=== PATIENT | female | born 1940 ===

== ENCOUNTER 2016-09-15 16:56 | Emergency (ER) | payer MEDICARE ==
[2016-09-15 16:56] VITALS: BMI 25.4
[2016-09-15 17:10] VITALS: O2SAT 96
[2016-09-15 18:22] LABS: BASO % 0.5 % (0.0-2.0); EOS # 0.1 K/uL (0.0-0.7); EOS % 0.9 % (0.0-4.0); HEMATOCRIT 40.9 % (34.0-47.0); LYMPH # 2.3 K/uL (1.0-4.3); MEAN CELL VOLUME 88.9 fL (81.0-99.0); MEAN CORPUSCULAR HEMOGLOBIN 30.4 pg (27.0-31.0); MEAN CORPUSCULAR HGB CONC 34.2 g/dL (33.0-37.0); MEAN PLATELET VOLUME 7.6 fL (7.2-11.7); MONO # 0.6 K/uL (0.0-0.8); MONO % 8.5 % (0.0-10.0); NRBC % 0.1 % (0.0-2.0); RED CELL DISTRIBUTION WIDTH 13.5 % (11.5-14.5); WHITE BLOOD COUNT 6.9 K/uL (4.8-10.8)
[2016-09-15 18:30] LABS: RBC URINE 1 /hpf (0-3); URINE BILIRUBIN NEGATIVE (NEGATIVE); URINE BLOOD NEGATIVE (NEGATIVE); URINE COLOR Straw (YELLOW); URINE GLUCOSE (UA) NORMAL (Normal); URINE KETONE NEGATIVE (NEGATIVE); URINE LEUKOCYTE ESTERASE 1+ Leu/uL (Negative); URINE PROTEIN NEGATIVE (NEGATIVE); URINE UROBILINOGEN NORMAL mg/dL (0.2-1.0); WBC URINE 6 /hpf (0-5)
[2016-09-15 18:32] LABS: CHLORIDE 96 mmol/L (98-107); POTASSIUM 4.7 mmol/L (3.6-5.2); SODIUM 140 mmol/L (132-148)
[2016-09-15 18:34] LABS: ALB/GLOB RATIO 1.4 (1.0-2.1); ALKALINE PHOSPHATASE 60 U/L (38-126); ALT/SGPT 24 U/L (9-52); AST/SGOT 31 U/L (14-36); BILIRUBIN,TOTAL 0.8 mg/dL (0.2-1.3); BLOOD UREA NITROGEN 13 mg/dL (7-17); CARBON DIOXIDE 30 mmol/L (22-30); GFR AFRICAN-AMERICAN > 60; TOTAL PROTEIN 7.8 g/dL (6.3-8.3)
[2016-09-15 18:35] LABS: CALCIUM 9.6 mg/dl (8.6-10.4); GLUCOSE,RANDOM 100 mg/dL (65-105)
[2016-09-15 18:36] LABS: URINE BACTERIA OCC (<OCC)
--- NOTE | 2016-09-15 19:35 | C.PDOC ---
History Of Present Illness 76 y/o female presents to ED with complaint of cramping RLQ abdominal pain for 3 days. Denies constipation. No fevers, chills, NVD, urinary symptoms, or other complaints. Patient reports she had colonoscopy 1 year ago which was normal. Time Seen by Provider: 09/15/16 19:30 Chief Complaint (Nursing): Abdominal Pain History Per: Patient History/Exam Limitations: no limitations Onset/Duration Of Symptoms: Days (3) Current Symptoms Are (Timing): Still Present Location Of Pain/Discomfort: RLQ Radiation Of Pain To:: None Associated Symptoms: denies: Fever, Nausea, Vomiting, Diarrhea, Constipation Abnormal Vaginal Bleeding: No Past Medical History Reviewed: Historical Data, Nursing Documentation, Vital Signs Vital Signs: Last Vital Signs Temp 98.1 F 09/15/16 17:07 Pulse 71 09/15/16 17:07 Resp 18 09/15/16 17:07 BP 136/87 09/15/16 17:07 Pulse Ox 96 09/15/16 19:59 - Medical History PMH: Gastritis, HTN, Hypercholesterolemia Surgical History: Cholecystectomy Family History: States: Unknown Family Hx - Social History Hx Alcohol Use: No Hx Substance Use: No - Immunization History Hx Tetanus Toxoid Vaccination: No Hx Influenza Vaccination: Yes Hx Pneumococcal Vaccination: No Review Of Systems Except As Marked, All Systems Reviewed And Found Negative. Constitutional: Negative for: Fever, Chills Cardiovascular: Negative for: Chest Pain Respiratory: Negative for: Cough, Shortness of Breath, Wheezing Gastrointestinal: Positive for: Abdominal Pain. Negative for: Nausea, Vomiting , Diarrhea, Constipation Skin: Negative for: Rash Physical Exam - Physical Exam Appears: Non-toxic, No Acute Distress Skin: Normal Color, Warm, Dry Head: Atraumatic, Normacephalic Oral Mucosa: Moist Chest: Symmetrical Cardiovascular: Rhythm Regular Respiratory: Normal Breath Sounds, No Rales, No Rhonchi, No Wheezing Gastrointestinal/Abdominal: Soft, No Tenderness, No Guarding, No Rebound, Other (dull to percussion right side) Back: Normal Inspection Extremity: Normal ROM, Capillary Refill (< 2 sec. ) Neurological/Psych: Oriented x3, Normal Speech, Normal Cognition ED Course And Treatment - Laboratory Results Result Diagrams: 09/15/16 18:15 09/15/16 18:15 Lab Interpretation: Normal (ua neg.) O2 Sat by Pulse Oximetry: 96 (RA) Pulse Ox Interpretation: Normal - Radiology CXR: Interpreted by Me CXR Interpretation: Yes: No Acute Disease - Other Rad abd x 2 X-Ray: Interpreted by Me (+FOS) Reevaluation Time: 19:58 Reassessment Condition: Unchanged Medical Decision Making Medical Decision Making: constipation, no acute issues trial laxative and return to ED PRN Disposition Doctor Will See Patient In The: Office Counseled Patient/Family Regarding: Studies Performed, Diagnosis - Disposition Referrals: Jarrett Tariq MD [Medical Doctor] - Disposition: HOME/ ROUTINE Disposition Time: 19:59 Condition: GOOD Additional Instructions: Briana madi botella de [employer] Magnesio AHORA y re-evalua so molestia del abdomen despues de usar el phil 2-3 veces Sigue un esuavesante de los heces 2 veces al georgi para ayudar en PREVENIR el estrenemiento. Sigue con Dr. Etta quintero que te refierre a un Gastroenterologo para hacer Colonoscopia. Instructions: Constipation (ED), Gas and Bloating (ED) Print Language: SERBIAN - Clinical Impression Clinical Impression: Colicky periumbilical abdominal pain - Scribe Statement The provider has reviewed the documentation as recorded by the Scribsoni Marmolejo Provider Scribe Attestation: All medical record entries made by the Scribe were at my direction and personally dictated by me. I have reviewed the chart and agree that the record accurately reflects my personal performance of the history, physical exam, medical decision making, and the department course for this patient. I have also personally directed, reviewed, and agree with the discharge instructions and disposition.
[2016-09-15 20:16] VITALS: BP 129/84; PULSE 68; RESP 16; TEMP 97.6
--- NOTE | 2016-09-16 09:51 | RAD ---
PROCEDURE: Radiographs of the chest and abdomen (obstructive series) HISTORY: RLQ colic COMPARISON: None available FINDINGS: CHEST: Heart size appears within normal limits. Ectatic aorta. Probable left costophrenic pleural thickening or tiny effusion. No focal consolidation. No definite pneumothorax. Please note that chest x-ray has limited sensitivity for the detection of pulmonary masses. ABDOMEN AND PELVIS: Right upper quadrant surgical clips. Nonobstructive bowel gas pattern. No definite free air. Osseous demineralization. Curvature of the lumbar spine convex the left. Multilevel degenerative changes. IMPRESSION: Probable tiny left pleural thickening/effusion. Right upper quadrant surgical clips. Nonobstructive bowel gas pattern.
== END 2016-09-15 20:16 | disposition home or self-care (01) ==
LOC: C.ER 16:56
DX: R10.33 Periumbilical pain (principal)
CPT/HCPCS: 74022; 80053; 81001; 85025; 96374; 99283; J1885

== ENCOUNTER 2016-11-08 12:57 | Emergency (ER) | payer MEDICARE ==
[2016-11-08 12:58] VITALS: BMI 25.4
[2016-11-08 13:06] VITALS: TEMP 98
--- NOTE | 2016-11-08 14:27 | RAD ---
PROCEDURE: Right Ankle Radiographs. HISTORY: twisted ankle COMPARISON: No prior study available comparison FINDINGS: BONES: Current study reveals no definitive evidence of acute displaced fracture nor dislocation. Osseous structures appear intact JOINTS: Normal. No osteoarthritis. Ankle mortise maintained. Talar dome intact SOFT TISSUES: There may be some minor bilateral soft tissue swelling caudal to the malleoli OTHER FINDINGS: None. IMPRESSION: No evidence of acute displaced fracture nor dislocation Questionable mild soft tissue swelling portal to the malleoli
--- NOTE | 2016-11-08 14:29 | C.PDOC ---
History Of Present Illness 76 year old patient presents to the ED complaining of right ankle pain to the lateral malleolus after inverting her foot while walking. Patient also complains of associated swelling. Patient denies fever, chills, numbness, weakness, or deformities. Time Seen by Provider: 11/08/16 13:21 Chief Complaint (Nursing): Lower Extremity Problem/Injury History Per: Patient History/Exam Limitations: no limitations Onset/Duration Of Symptoms: Days (today) Current Symptoms Are (Timing): Still Present Severity: Mild Pain Scale Rating Of: 3 Recent travel outside of the [place]: No - Ankle/Foot Description Of Injury: Fell Past Medical History Reviewed: Historical Data, Nursing Documentation, Vital Signs Vital Signs: Last Vital Signs Temp 98.0 F 11/08/16 13:03 Pulse 75 11/08/16 14:56 Resp 18 11/08/16 14:56 BP 124/78 11/08/16 14:56 Pulse Ox 98 11/08/16 14:56 - Medical History PMH: Gastritis, HTN, Hypercholesterolemia Surgical History: Cholecystectomy Family History: States: Unknown Family Hx - Social History Hx Alcohol Use: No Hx Substance Use: No - Immunization History Hx Tetanus Toxoid Vaccination: Yes Hx Influenza Vaccination: Yes Hx Pneumococcal Vaccination: Yes Review Of Systems Except As Marked, All Systems Reviewed And Found Negative. Constitutional: Negative for: Fever, Chills Musculoskeletal: Positive for: Other (right ankle pain) Neurological: Negative for: Weakness, Numbness Physical Exam - Physical Exam Appears: Non-toxic, No Acute Distress Skin: Warm, Dry Cardiovascular: Rhythm Regular Extremity: Normal ROM, No Pedal Edema, No Calf Tenderness, Capillary Refill (<2 seconds), No Deformity, Other (right ankle: swelling and tenderness to the lateral malleolus; normal pulse; normal ROM; unable to bear weight) Neurological/Psych: Oriented x3, Normal Speech, Normal Cognition, Normal Motor, Normal Sensation ED Course And Treatment O2 Sat by Pulse Oximetry: 97 (room air) Pulse Ox Interpretation: Normal - Other Rad right ankle X-Ray: Interpreted by Me, Viewed By Me Interpretation: no fracture Progress Note: Plan: Ultram, Right ankle x-ray. Patient's right foot was put in a splint. Crutches were given to assist with ambulation. Patient is discharged and instructed to follow up with the podiatry clinic. Disposition Doctor Will See Patient In The: Hospital Counseled Patient/Family Regarding: Diagnosis, Need For Followup, Rx Given - Disposition Referrals: [facility] [Outside] Disposition: HOME/ ROUTINE Disposition Time: 14:48 Additional Instructions: Please make an appointment with the Podiatry Clinic. Prescriptions: traMADol/Acetaminophen [Ultracet 37.5/325 mg] 1 tab PO TID PRN #20 tab PRN Reason: pain Instructions: Ankle Sprain (ED), RICE Therapy (ED) Forms: Gen Discharge Inst Amharic - POA Present On Arrival: None - Clinical Impression Clinical Impression: Joint pain, Sprain of ankle, right - Scribe Statement The provider has reviewed the documentation as recorded by the Scribe Margot Kent All medical record entries made by the Scribe were at my direction and personally dictated by me. I have reviewed the chart and agree that the record accurately reflects my personal performance of the history, physical exam, medical decision making, and the department course for this patient. I have also personally directed, reviewed, and agree with the discharge instructions and disposition.
[2016-11-08 14:57] VITALS: BP 124/78; PULSE 75; RESP 18
[2016-11-08 15:02] VITALS: O2SAT 97
== END 2016-11-08 14:58 | disposition home or self-care (01) ==
LOC: C.ER 12:57
DX: S93.401A Sprain of unspecified ligament of right ankle, initial encounter (principal); X50.3XXA Overexertion from repetitive movements, initial encounter; Y93.01 Activity, walking, marching and hiking; Y92.414 Local residential or business street as the place of occurrence of the external cause
CPT/HCPCS: 29515; 73610; 97116; 97161; 99285; G8978; G8979; G8980

== ENCOUNTER 2016-12-13 12:19 | Emergency (ER) | payer MEDICARE, OTHER ==
[2016-12-13 12:20] VITALS: BMI 25.4
[2016-12-13 12:28] VITALS: TEMP 97.8
[2016-12-13 14:04] LABS: BASO % 0.5 % (0.0-2.0); EOS % 0.5 % (0.0-4.0); LYMPH # 1.9 K/uL (1.0-4.3); LYMPH % 28.7 % (20.0-40.0); MEAN CELL VOLUME 88.2 fL (81.0-99.0); MEAN CORPUSCULAR HEMOGLOBIN 29.5 pg (27.0-31.0); MEAN CORPUSCULAR HGB CONC 33.5 g/dL (33.0-37.0); MEAN PLATELET VOLUME 7.7 fL (7.2-11.7); MONO # 0.5 K/uL (0.0-0.8); MONO % 7.3 % (0.0-10.0); RED CELL DISTRIBUTION WIDTH 13.3 % (11.5-14.5); WHITE BLOOD COUNT 6.6 K/uL (4.8-10.8)
[2016-12-13 14:12] LABS: CHLORIDE 95 mmol/L (98-107)
--- NOTE | 2016-12-13 14:12 | C.PDOC ---
History Of Present Illness 76-year-old female, PMHx includes Hypertension, Migraines, GERD and Insomnia, presents to the emergency department with complaints of four-day duration of left-sided shoulder pain that started four days ago after lifting heavy laundry. Pain radiates to left arm and left chest and is rated 5/10. Patient denies any relieving/exacerbating factors. She notes she has a general headache , due to not being able to sleep. No trauma, palpitations, SOB, abdominal pain, headache, fevers, chills, back pain, or any other associated symptoms. No other complaints at this time. Time Seen by Provider: 12/13/16 13:23 Chief Complaint (Nursing): Chest Pain History Per: Patient History/Exam Limitations: no limitations Onset/Duration Of Symptoms: Days Current Symptoms Are (Timing): Still Present Severity: Moderate Pain Scale Rating Of: 5 Past Medical History Reviewed: Historical Data, Nursing Documentation, Vital Signs Vital Signs: Last Vital Signs Temp 97.8 F 12/13/16 12:27 Pulse 75 12/13/16 12:27 Resp 20 12/13/16 12:27 BP Pulse Ox 98 12/13/16 14:14 - Medical History PMH: Gastritis, Gall Bladder Disease, HTN, Hypercholesterolemia Surgical History: Cholecystectomy Family History: States: No Known Family Hx - Social History Hx Alcohol Use: No Hx Substance Use: No - Immunization History Hx Tetanus Toxoid Vaccination: Yes Hx Influenza Vaccination: Yes Hx Pneumococcal Vaccination: Yes Review Of Systems Except As Marked, All Systems Reviewed And Found Negative. Constitutional: Negative for: Fever, Chills Cardiovascular: Positive for: Chest Pain. Negative for: Palpitations Respiratory: Negative for: Shortness of Breath Gastrointestinal: Negative for: Nausea, Vomiting Musculoskeletal: Negative for: Back Pain Neurological: Positive for: Headache. Negative for: Weakness, Numbness, Dizziness Physical Exam - Physical Exam Appears: Non-toxic, No Acute Distress Skin: Warm, Dry, No Rash Head: Atraumatic, Normacephalic Eye(s): bilateral: Normal Inspection, PERRL Nose: Normal Oral Mucosa: Moist Lips: Normal Appearing Neck: Normal ROM Chest: Tenderness (Mild, left clavicular region.) Cardiovascular: Rhythm Regular, No Murmur Respiratory: Normal Breath Sounds, No Accessory Muscle Use Gastrointestinal/Abdominal: Soft, No Tenderness Back: Normal Inspection Extremity: Normal ROM Neurological/Psych: Oriented x3, Normal Speech ED Course And Treatment - Laboratory Results Result Diagrams: 12/13/16 13:59 12/13/16 13:59 ECG: Interpreted By Me, Viewed By Me ECG Rhythm: Sinus Rhythm ECG Interpretation: No Acute Changes Rate From EC O2 Sat by Pulse Oximetry: 98 (on RA) Pulse Ox Interpretation: Normal Progress Note: feeling better Medical Decision Making Medical Decision Making: Patient feeling better, does not want to stay and be further evaluated, states pain is consistent with arthritis. Disposition Counseled Patient/Family Regarding: Studies Performed, Diagnosis, Need For Followup, Rx Given - Disposition Disposition: HOME/ ROUTINE Disposition Time: 14:55 Condition: STABLE Additional Instructions: Siga con gonzalez doctor. Regrease a la hector de emergencia si le sigue doliendo el pecho. Prescriptions: Naproxen [Naprosyn] 1 tab PO BID PRN #25 tab PRN Reason: Pain Instructions: Musculoskeletal Pain (ED) Forms: [employer] [facility] (Cymro) - Clinical Impression Clinical Impression: Musculoskeletal chest pain - Scribe Statement The provider has reviewed the documentation as recorded by the Scribe (Jones Angela) All medical record entries made by the Scribe were at my direction and personally dictated by me. I have reviewed the chart and agree that the record accurately reflects my personal performance of the history, physical exam, medical decision making, and the department course for this patient. I have also personally directed, reviewed, and agree with the discharge instructions and disposition.
[2016-12-13 14:13] LABS: POTASSIUM 4.1 mmol/L (3.6-5.2); SODIUM 138 mmol/L (132-148)
--- NOTE | 2016-12-13 14:14 | RAD ---
HISTORY: chest and arm pain COMPARISON: Obstructive series performed 09/15/16 TECHNIQUE: Chest, one view. FINDINGS: LUNGS: Mild bibasilar atelectasis. Please note that chest x-ray has limited sensitivity for the detection of pulmonary masses. PLEURA: No significant pleural effusion identified. No definite pneumothorax . CARDIOVASCULAR: Heart size appears within normal limits. Ectatic aorta. OSSEOUS STRUCTURES: Degenerative changes. VISUALIZED UPPER ABDOMEN: Unremarkable. OTHER FINDINGS: None. IMPRESSION: Mild bibasilar atelectasis.
[2016-12-13 14:15] LABS: ALB/GLOB RATIO 1.5 (1.0-2.1); ALKALINE PHOSPHATASE 77 U/L (38-126); AST/SGOT 27 U/L (14-36); BILIRUBIN,TOTAL 0.7 mg/dL (0.2-1.3); CARBON DIOXIDE 28 mmol/L (22-30); GFR AFRICAN-AMERICAN > 60; TOTAL PROTEIN 7.2 g/dL (6.3-8.3)
[2016-12-13 14:16] LABS: ALT/SGPT 38 U/L (9-52); BLOOD UREA NITROGEN 13 mg/dL (7-17); CALCIUM 9.1 mg/dl (8.6-10.4); GLUCOSE,RANDOM 93 mg/dL (65-105)
[2016-12-13 15:12] VITALS: BP 132/81; PULSE 82; RESP 16; O2SAT 96
--- NOTE | 2016-12-16 07:12 | CARD ---
APPROVED REPORT EKG Measurement Heart [id number] <Conclusion> Normal sinus rhythm Possible Inferior infarct, age undetermined Possible Anterior infarct, age undetermined Abnormal ECG
== END 2016-12-13 15:12 | disposition home or self-care (01) ==
LOC: C.ER 12:19
DX: R07.89 Other chest pain (principal)

== ENCOUNTER 2017-03-09 14:52 | Emergency (ER) | payer MEDICARE, OTHER ==
[2017-03-09 14:52] VITALS: BMI 24.0
[2017-03-09 15:08] VITALS: RESP 18
--- NOTE | 2017-03-09 15:16 | C.PDOC ---
History Of Present Illness 76-year-old female, PMHx includes Hypertension, Migraines, GERD and Insomnia, presents to the emergency department with complaints of left sided chest pain that radiates down the left arm for four days. Patient's daughter states she "suffers of nerves" and has "anxiety issues." H/o similar episodes with resolution with anxiety. Patient is requesting refill of Klonopin and Remeron since she does not have a psychiatrist available to her until April 10. No h/o stress test. She denies smoking history, fever, chills, nausea, vomiting , weakness, numbness, or shortness of breath. Time Seen by Provider: 03/09/17 15:13 Chief Complaint (Nursing): Chest Pain History Per: Patient, Family, Presentation Manager ([facility] [place]) History/Exam Limitations: no limitations Onset/Duration Of Symptoms: Days (4 days ) Current Symptoms Are (Timing): Still Present Quality: "Pain" Associated Symptoms: denies: Nausea, Dyspnea, Diaphoresis, Syncope Exacerbating Factors: None Alleviating Factors: None Recent travel outside of the [place]: No Past Medical History Reviewed: Historical Data, Nursing Documentation, Vital Signs Vital Signs: Last Vital Signs Temp 98.1 F 03/09/17 17:07 Pulse 74 03/09/17 17:07 Resp 18 03/09/17 17:07 BP 138/78 03/09/17 17:07 Pulse Ox 97 03/09/17 18:23 - Medical History PMH: Anxiety, Arthritis (fingers and shoulders), Depression, Gastritis, Gall Bladder Disease, HTN (NO MEDS), Hypercholesterolemia, Osteoporosis Surgical History: Cholecystectomy Family History: States: Other Other Family History: notes her father past away due to "heart problems" when he was of old age. - Social History Hx Alcohol Use: No Hx Substance Use: No - Immunization History Hx Tetanus Toxoid Vaccination: Yes Hx Influenza Vaccination: Yes Hx Pneumococcal Vaccination: No Review Of Systems Constitutional: Negative for: Fever, Chills Cardiovascular: Positive for: Chest Pain. Negative for: Palpitations Respiratory: Negative for: Cough, Shortness of Breath Gastrointestinal: Negative for: Nausea, Vomiting, Abdominal Pain, Diarrhea Musculoskeletal: Positive for: Arm Pain (left arm pain ) Neurological: Negative for: Weakness, Numbness, Headache Psych: Positive for: Anxiety Physical Exam - Physical Exam Appears: Non-toxic, No Acute Distress, Other (Patient is anxious on exam ) Skin: Warm, Dry Head: Atraumatic, Normacephalic Eye(s): bilateral: Normal Inspection, EOMI Nose: Normal Oral Mucosa: Moist Neck: Normal ROM, Supple Chest: Symmetrical, No Deformity, Tenderness (mildly tender to palpation lateral left anterior chest wall ) Cardiovascular: Rhythm Regular Respiratory: Normal Breath Sounds, No Rales, No Rhonchi, No Wheezing Gastrointestinal/Abdominal: Soft, No Tenderness, No Distention, No Guarding, No Rebound Extremity: Normal ROM, No Tenderness Neurological/Psych: Oriented x3, Normal Speech, Normal Cognition, Normal Sensation ED Course And Treatment - Laboratory Results Result Diagrams: 03/09/17 15:53 03/09/17 15:53 ECG: Interpreted By Me, Viewed By Me ECG Rhythm: Sinus Rhythm Interpretation Of ECG: No ST elevation Rate From EC O2 Sat by Pulse Oximetry: 97 (RA) Progress Note: Patient was given Klonopin and Aspirin. UA and blood work were ordered. Upon re-evaluation patient notes she is feeling better. Patient declines admission, and wishes to leave the ED. This action is against my medical advice to the patient and the deicison was made with informed refusal. Patient's daughter was at bedside and also made the decision with informed refusal. The patient was told that admission is neceessary and a full explaination of the rationale was given. The risks of leaving were explained and include, but are not limited to, worsening of known or currently unknown conditions, permenant disability and from undiaagnosed or untreated conditions. The patient was given the opportunity to ask questions and reconsider. The patient was encouraged to return to the ED at any time for further care. Daughter at bedside and understands risks.Discussed can not r/o cardiac cause of chest pain, pt verbalizes that she understands the risks. Disposition - Disposition Referrals: [facility] [Outside] Disposition: HOME/ ROUTINE Disposition Time: 16:44 Condition: STABLE Additional Instructions: Vaya a gonzalez mdico o la clnica en 2-5 mccann sin falta, para mas evaluacin. Volver a la hector de emergencia en cualquier momento si los sntomas persisten o empeoran. [facility] Services: [address] [place] [phone] Prescriptions: Clonazepam [Klonopin] 0.5 mg PO HS #10 tablet Mirtazapine [Remeron] 15 mg PO HS #10 tablet Instructions: Chest Pain (ED) Forms: [facility] (Kyrgyz), (AMA) Informed Refusal Print Language: SETSWANA - Clinical Impression Clinical Impression: Chest pain - PA / AURIST / Resident Statement MD/DO has reviewed & agrees with the documentation as recorded. - Scribe Statement The provider has reviewed the documentation as recorded by the Scribe Faby Weiss All medical record entries made by the Seemaibsoni were at my direction and personally dictated by me. I have reviewed the chart and agree that the record accurately reflects my personal performance of the history, physical exam, medical decision making, and the department course for this patient. I have also personally directed, reviewed, and agree with the discharge instructions and disposition.
[2017-03-09 16:06] LABS: BASO % 0.4 % (0.0-2.0); EOS % 0.7 % (0.0-4.0); LYMPH # 2.1 K/uL (1.0-4.3); LYMPH % 35.9 % (20.0-40.0); MEAN CORPUSCULAR HEMOGLOBIN 30.7 pg (27.0-31.0); MEAN CORPUSCULAR HGB CONC 33.9 g/dL (33.0-37.0); MEAN PLATELET VOLUME 8.3 fL (7.2-11.7); MONO # 0.4 K/uL (0.0-0.8); MONO % 6.7 % (0.0-10.0); NRBC % 0.1 % (0.0-2.0); RED CELL DISTRIBUTION WIDTH 13.6 % (11.5-14.5); WHITE BLOOD COUNT 5.7 K/uL (4.8-10.8)
[2017-03-09 16:07] LABS: MEAN CELL VOLUME 90.4 fL (81.0-99.0)
[2017-03-09 16:20] LABS: CHLORIDE 102 mmol/L (98-107)
[2017-03-09 16:21] LABS: POTASSIUM 3.7 mmol/L (3.6-5.2); SODIUM 138 mmol/L (132-148)
[2017-03-09 16:23] LABS: ALB/GLOB RATIO 1.2 (1.0-2.1); AST/SGOT 23 U/L (14-36); BILIRUBIN,TOTAL 0.5 mg/dL (0.2-1.3); CARBON DIOXIDE 28 mmol/L (22-30); GFR AFRICAN-AMERICAN > 60; TOTAL PROTEIN 7.7 g/dL (6.3-8.3)
[2017-03-09 16:24] LABS: ALKALINE PHOSPHATASE 69 U/L (38-126); ALT/SGPT 33 U/L (9-52); BLOOD UREA NITROGEN 12 mg/dL (7-17); CALCIUM 9.7 mg/dl (8.6-10.4); GLUCOSE,RANDOM 100 mg/dL (65-105)
[2017-03-09 16:28] LABS: URINE BILIRUBIN NEGATIVE (NEGATIVE); URINE BLOOD NEGATIVE (NEGATIVE); URINE COLOR Colorless (YELLOW); URINE GLUCOSE (UA) NORMAL (Normal); URINE KETONE NEGATIVE (NEGATIVE); URINE LEUKOCYTE ESTERASE NEG Leu/uL (Negative); URINE PROTEIN NEGATIVE (NEGATIVE); URINE UROBILINOGEN NORMAL mg/dL (0.2-1.0); WBC URINE < 1 /hpf (0-5)
[2017-03-09 17:09] VITALS: BP 138/78; PULSE 74; TEMP 98.1
[2017-03-09 17:34] VITALS: O2SAT 97
--- NOTE | 2017-03-09 18:22 | RAD ---
PROCEDURE: CHEST RADIOGRAPH, 1 VIEW Technique: Single view portable semi erect @ 16:39. HISTORY: pain COMPARISON: 12/13/2016. FINDINGS: LUNGS: Clear. PLEURA: No pneumothorax or pleural fluid seen. CARDIOVASCULAR: No radiographic findings to suggest acute or significant cardiovascular disease. OSSEOUS STRUCTURES: No significant abnormalities. VISUALIZED UPPER ABDOMEN: Normal. OTHER FINDINGS: None. IMPRESSION: No active disease. No acute/significant interval changes. Please note: No preliminary report/ innterpretation of this examination provided by emergency department personnel. No
== END 2017-03-09 17:08 | disposition home or self-care (01) ==
LOC: C.ER 14:52
DX: R07.9 Chest pain, unspecified (principal)